=== PATIENT | male | born 1960 | race Caucasian/White ===

== ENCOUNTER 2023-05-16 06:20 | Emergency (ER) | payer OTHER, MEDICARE ==
[~2023-05-16] VITALS: Ht 172.7 cm; Wt 69.0 kg
[2023-05-16 06:27] VITALS: O2SAT 100
[2023-05-16 07:22] LABS: HEMATOCRIT. 31.9 % (42.0-52.0); HEMOGLOBIN. 10.8 g/dL (14.0-18.0); MEAN CORPUSCULAR HEMOGLOBIN 29.8 pg (28.0-32.0); MEAN CORPUSCULAR HGB CONC 33.8 g/dL (31.0-37.0); MEAN CORPUSCULAR VOLUME 88.1 fL (80.0-94.0); MEAN PLATELET VOLUME 8.1 fl (7.4-10.4); PLATELET 98 x1000/uL (130-400); RED BLOOD CELL COUNT 3.62 mill/uL (4.7-6.1); RED CELL DISTRIBUTION WIDTH 18.7 % (11.6-14.6); WHITE BLOOD COUNT 4.2 x1000/uL (4.5-11.0)
[2023-05-16 07:32] LABS: DIFFERENTIAL COMMENT 1
[2023-05-16 07:50] LABS: ALANINE AMINOTRANSFERASE 30 IU/L (10-49); ALBUMIN 3.2 g/dL (3.2-4.8); ASPARTATE AMINOTRANSFERASE 32 IU/L (<34); BILIRUBIN TOTAL 0.8 mg/dL (0.1-1.0); CALCIUM 8.9 mg/dL (8.7-10.4); CARBON DIOXIDE 27 mEq/L (21-32); CHLORIDE 105 mEq/L (98-107); CREATININE 0.9 mg/dL (0.6-1.3); GLUCOSE 197 mg/dL (70-105); PROTEIN TOTAL 6.7 g/dL (6.0-8.3); SODIUM 135 mEq/L (136-145); TROPONIN I HIGH SENSITIVITY 8 ng/L (3.0-53); UREA NITROGEN BLOOD 24 mg/dL (9-23)
[2023-05-16 10:30] LABS: PLATELET ESTIMATE DECREASED
[2023-05-16 10:33] LABS: ANISOCYTOSIS 1+
[2023-05-16 11:05] VITALS: BP 97/51; PULSE 60; RESP 19; TEMP 98
== END 2023-05-16 11:35 | disposition short-term general hospital (02) ==
LOC: ER 06:20 → EDBEDREQ 07:24 → ER 11:35 → CANBEDREQ 05-18 05:37
DX: R55 Syncope and collapse (principal); E11.9 Type 2 diabetes mellitus without complications; E78.00 Pure hypercholesterolemia, unspecified; I10 Essential (primary) hypertension
CPT/HCPCS: 36415; 71045; 80053; 83880; 84484; 85025; 93005; 99285